=== PATIENT | female | born 1990 | race Hispanic/Latino ===

== ENCOUNTER 2019-03-28 10:33 | Emergency (ER) | payer BC ==
[2019-03-28 11:19] LABS: Urine Blood TRACE (NEG); Urine Glucose NEGATIVE (NEG); Urine Protein NEGATIVE (NEG); Urine Specific Gravity 1.015 (1.005-1.030); Urine pH 7.5 (5.0-7.0)
--- NOTE | 2019-03-28 11:47 | EDPHYS ---
Physician Documentation [facility] Name: Estela Fallon Age: 28 yrs Sex: Female : 1990 Arrival Date: 03/28/2019 Time: 10:36 Bed 20 Private MD: ED Physician Reji Omer HPI: 03/28 11:18 This 28 yrs old Female presents to ER via Ambulatory with complaints of Vision pm1 Problem. 11:18 The patient is experiencing blurred vision, tunnel vision. Onset: The symptoms/episode pm1 began/occurred this morning. Duration: the symptoms last 30 minute(s). Aggravated by nothing. Alleviated by nothing. Associated signs and symptoms: Pertinent negatives: None. dizziness, ear ache, fever, headache, runny nose. Patient does not utilize any form of vision correction. Severity of symptoms: in the emergency department the symptoms have resolved Pain is currently a 0 / 10. The patient has experienced similar episodes in the past, a few times, and the symptoms today are exactly the same, Last occurred with prior . Patient is . Patient reports preeclampsia with prior . The patient has not recently seen a physician, Chris is patient's OB. Patient is currently 31 weeks. patient was watching TV this AM and reports bilateral blurry vision that felt like tunnel vision. Her symptoms lasted for 30 minutes. Patient reports complete resolution. She has had multiple episodes of the same symptoms with her prior . She had a history of preeclampsia with her previous . No vision loss, headache, weakness, abdominal pain, nausea/vomiting/diarrhea, vaginal discharge or bleeding. . 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 - Social history:: Smoking status: Patient/guardian denies using tobacco. - Ebola Screening: : Patient negative for fever greater than or equal to 101.5 degrees Fahrenheit, and additional compatible Ebola Virus Disease symptoms Patient denies exposure to infectious person Patient denies travel to an Ebola-affected area in the 21 days before illness onset No symptoms or risks identified at this time. ROS: 11:18 Constitutional: Negative for fever, chills, and weight loss, ENT: Negative for injury, pm1 pain, and discharge, Neck: Negative for injury, pain, and swelling, Cardiovascular: Negative for chest pain, palpitations, and edema, Respiratory: Negative for shortness of breath, cough, wheezing, and pleuritic chest pain, Abdomen/GI: Negative for abdominal pain, nausea, vomiting, diarrhea, and constipation, Back: Negative for injury and pain, : Negative for injury, bleeding, discharge, and swelling, MS/Extremity: Negative for injury and deformity, Skin: Negative for injury, rash, and discoloration, Neuro: Negative for headache, weakness, numbness, tingling, and seizure. 11:18 Eyes: Positive for blurry vision, Negative for discharge, matting, pain, swelling, tearing, vision loss. Exam: 11:18 Constitutional: This is a well developed, well nourished patient who is awake, alert, pm1 and in no acute distress. Head/Face: Normocephalic, atraumatic. 11:18 ENT: Nares patent. No nasal discharge, no septal abnormalities noted. Tympanic membranes are normal and external auditory canals are clear. Oropharynx with no redness, swelling, or masses, exudates, or evidence of obstruction, uvula midline. Mucous membranes moist. 11:18 Neck: Trachea midline, no thyromegaly or masses palpated, and no cervical lymphadenopathy. Supple, full range of motion without nuchal rigidity, or vertebral point tenderness. No Meningismus. Chest/axilla: Normal chest wall appearance and motion. Nontender with no deformity. No lesions are appreciated. Cardiovascular: Regular rate and rhythm with a normal S1 and S2. No gallops, murmurs, or rubs. Normal PMI, no JVD. No pulse deficits. Respiratory: Lungs have equal breath sounds bilaterally, clear to auscultation and percussion. No rales, rhonchi or wheezes noted. No increased work of breathing, no retractions or nasal flaring. Back: No spinal tenderness. No costovertebral tenderness. Full range of motion. Skin: Warm, dry with normal turgor. Normal color with no rashes, no lesions, and no evidence of cellulitis. MS/ Extremity: Pulses equal, no cyanosis. Neurovascular intact. Full, normal range of motion. 11:18 Eyes: Periorbital structures: appear normal, no acute changes, Pupils: no acute changes, Extraocular movements: no acute changes, Conjunctiva: normal, no exudate, no injection, no subconjunctival hemorrhage no abnormal tearing, Corneas: are normal, no acute changes, no foreign body, Sclera: no appreciated abnormality, no acute changes, Anterior chamber: normal, no hyphema, Lids and lashes: appear normal, bilaterally, funduscopic exam reveals no obvious abnormalities, discs that are sharp, no appreciated papilledema, no enlargement of the optic cup, no appreciated A-V knicking, no evidence of cotton wool exudatates, no flame hemorrhages, Visual dickens: are intact, no acute changes. 11:18 Abdomen/GI: Inspection: gravid appearance, is noted, Palpation: abdomen is soft and non-tender. 11:18 Neuro: Orientation: is normal, Mentation: is normal, Cranial nerves: CN II- XII are normal as tested, Cerebellar function: normal finger to nose testing, Motor: moves all fours, Sensation: is normal, no obvious gross deficits, Gait: is steady, at a normal pace, without difficulty. Vital Signs: 10:38 BP 113 / 72; Pulse 93; Resp 18; Temp 97.7; Pulse Ox 98% on R/A; Weight 73.48 kg; Height hj 5 ft. 4 in. (162.56 cm); Pain 0/10; 10:38 Body Mass Index 27.81 (73.48 kg, 162.56 cm) hj MDM: 10:44 Patient medically screened. pm1 11:44 Data reviewed: vital signs. Data interpreted: Pulse oximetry: on room air is 98 %. pm1 Interpretation: normal. Counseling: I had a detailed discussion with the patient and/or guardian regarding: the historical points, exam findings, and any diagnostic results supporting the discharge/admit diagnosis, lab results, the need for outpatient follow up, an opthalmologist, an OB/Gyne specialist, to return to the emergency department if symptoms worsen or persist or if there are any questions or concerns that arise at home. 03/28 11:16 Order name: Urine Dipstick--Ancillary (enter results); Complete Time: 11:33 bd 03/28 11:16 Order name: Urine --Ancillary (enter results); Complete Time: 11:33 bd 03/28 10:56 Order name: Urine Dipstick-Ancillary (obtain specimen); Complete Time: 11:15 pm1 03/28 11:20 Order name: EKG; Complete Time: 11:22 pm1 03/28 11:20 Order name: EKG - Nurse/Tech; Complete Time: 11:52 pm1 03/28 11:20 Order name: FHT's; Complete Time: 11:28 pm1 Administered Medications: No medications were administered Disposition: 15:53 Co-signature as Attending Physician, Reji Omer MD. rn Disposition: 03/28/19 11:46 Discharged to Home. Impression: Other visual disturbances. - Condition is Stable. - Discharge Instructions: Blurred Vision, Adult, Visual Disturbances. - Medication Reconciliation Form, Thank You Letter, Antibiotic Education, Prescription Opioid Use form. - Follow up: Emergency Department; When: As needed; Reason: Worsening of condition. Follow up: Simon Perez MD; When: 2 - 3 days; Reason: Recheck today's complaints, Continuance of care, Re-evaluation by your physician. - Problem is new. - Symptoms are resolved. Signatures: Dispatcher [employer] EDMS Faustina Pineda RN RN aj Nieto, Roman, MD MD rn Joaquin, Henry, RN RN hj Marinas, Patrick, NP CHILDREN'S MINISTER pm1 Corrections: (The following items were deleted from the chart) 11:47 11:44 Counseling: I had a detailed discussion with the patient and/or guardian pm1 regarding: the historical points, exam findings, and any diagnostic results supporting the discharge/admit diagnosis, lab results, the need for outpatient follow up, an OB/Gyne specialist, to return to the emergency department if symptoms worsen or persist or if there are any questions or concerns that arise at home, pm1 11:47 11:46 03/28/2019 11:46 Discharged to Home. Impression: Other visual disturbances. pm1 Condition is Stable. Forms are Medication Reconciliation Form, Thank You Letter, Antibiotic Education, Prescription Opioid Use. Follow up: Emergency Department; When: As needed; Reason: Worsening of condition. Follow up: Private Physician; When: 2 - 3 days; Reason: Recheck today's complaints, Continuance of care, Re-evaluation by your physician. Problem is new. Symptoms are resolved. pm1 12:18 11:47 03/28/2019 11:46 Discharged to Home. Impression: Other visual disturbances. aj Condition is Stable. Discharge Instructions: Blurred Vision, Adult. Forms are Medication Reconciliation Form, Thank You Letter, Antibiotic Education, Prescription Opioid Use. Follow up: Emergency Department; When: As needed; Reason: Worsening of condition. Follow up: Simon Perez; When: 2 - 3 days; Reason: Recheck today's complaints, Continuance of care, Re-evaluation by your physician. Problem is new. Symptoms are resolved. pm1
--- NOTE | 2019-03-28 11:47 | ER ---
Nurse's Notes [facility] Name: Estela Fallon Age: 28 yrs Sex: Female : 1990 Arrival Date: 03/28/2019 Time: 10:36 Bed 20 Private MD: Diagnosis: Other visual disturbances Presentation: 03/28 10:36 Presenting complaint: Patient states: LMP-08/26/18; "i started having tunnel vision this hj morning while i was watching TV; denies headache, denies loss of vision; denies N/V; denies abd pain or vaginal bleeding;. Transition of care: patient was not received from another setting of care. Onset of symptoms was March 28, 2019. Risk Assessment: Do you want to hurt yourself or someone else?. Initial Sepsis Screen: Does the patient meet any 2 criteria? No. Patient's initial sepsis screen is negative. Does the patient have a suspected source of infection? No. Patient's initial sepsis screen is negative. Care prior to arrival: None. 10:36 Method Of Arrival: Ambulatory 10:36 Acuity: KYLE 4 DIRECTOR REGULATORY AGENCY: 10:38 [facility] 08/26/2018 Historical: - Allergies: 10:38 No Known Allergies; hj - PMHx: 10:38 None; hj - PSHx: 10:38 ; hj - Immunization history:: Adult Immunizations up to date. - Social history:: Smoking status: Patient/guardian denies using tobacco. - Ebola Screening: : Patient negative for fever greater than or equal to 101.5 degrees Fahrenheit, and additional compatible Ebola Virus Disease symptoms Patient denies exposure to infectious person Patient denies travel to an Ebola-affected area in the 21 days before illness onset No symptoms or risks identified at this time. Screenin:30 Abuse screen: Denies threats or abuse. Denies injuries from another. Nutritional aj screening: No deficits noted. Tuberculosis screening: No symptoms or risk factors identified. Fall Risk None identified. Assessment: 11:30 General: Appears in no apparent distress. comfortable, Behavior is calm, cooperative, aj appropriate for age. Pain: Denies pain. Neuro: Level of Consciousness is awake, alert, obeys commands, Oriented to person, place, time, situation, Appropriate for age Reports "tunnel vision". Respiratory: Airway is patent Respiratory effort is even, unlabored, Respiratory pattern is regular, symmetrical. Derm: Skin is intact, is healthy with good turgor, Skin is pink, warm \\T\\ dry. normal. Vital Signs: 10:38 BP 113 / 72; Pulse 93; Resp 18; Temp 97.7; Pulse Ox 98% on R/A; Weight 73.48 kg; Height hj 5 ft. 4 in. (162.56 cm); Pain 0/10; 10:38 Body Mass Index 27.81 (73.48 kg, 162.56 cm) hj Vitals: 11:30 Heart Tones 147. aj ED Course: 10:36 Patient arrived in ED. hj 10:38 Triage completed. hj 10:39 Arm band placed on left wrist. hj 10:42 Teddy Ruiz NP is PHCP. pm1 10:42 Reji Omer MD is Attending Physician. pm1 10:42 Faustina Pineda, RN is Primary Nurse. aj 11:17 Urine --Ancillary (enter results) Sent. aj 11:17 Urine Dipstick--Ancillary (enter results) Sent. aj 11:30 Patient has correct armband on for positive identification. aj 11:47 Simon Perez MD is Referral Physician. pm1 12:16 No provider procedures requiring assistance completed. Patient did not have IV access aj during this emergency room visit. Administered Medications: No medications were administered Outcome: 11:46 Discharge ordered by MD. pm1 12:16 Discharged to home ambulatory. aj 12:16 Condition: good 12:16 Discharge instructions given to patient, Instructed on discharge instructions, follow up and referral plans. Demonstrated understanding of instructions, follow-up care. 12:18 Patient left the ED. aj Signatures: Faustina Pineda, RN RN Arturo Rosado RN RN Teddy De NP DEPARTMENT ADMINISTRATOR pm1 Corrections: (The following items were deleted from the chart) 10:41 10:38 73.48 kg; Height 5 ft. 4 in.; BMI: 27.8; Pain 0/10; hj hj 10:42 10:38 Pulse 93bpm; Resp 18bpm; Pulse Ox 98% RA; Temp 97.7F; 73.48 kg; Height 5 ft. 4 hj in.; BMI: 27.8; Pain 0/10; hj 10:43 10:36 Acuity: KYLE 4 hj hj 11:00 10:36 Acuity: KYLE 3 hj hj
[2019-03-28 15:09] VITALS: BP 113/72; TEMP 97.7; O2SAT 98
--- NOTE | 2019-03-28 15:56 | EKG ---
Test Date: 2019-03-28 Test Time: 11:43:04 Junior Php Developer: LIVAN MEASUREMENT RESULTS: Intervals: Rate: 80 FL: 132 QRSD: 78 QT: 372 QTc: 429 [place]: P: 43 FL: 132 QRS: 92 T: 44 INTERPRETIVE STATEMENTS: Normal sinus rhythm Rightward axis Borderline ECG No previous ECG available for comparison Electronically Signed On 03-28-19 15:55:33 CDT by Angelo Chambers
== END 2019-03-28 12:18 | disposition home or self-care (01) ==
LOC: ER 10:33
DX: O26.893 Other specified pregnancy related conditions, third trimester (principal); H53.8 Other visual disturbances; Z3A.17 17 weeks gestation of pregnancy
CPT/HCPCS: 81003; 81025; 93005; 99283

== ENCOUNTER 2019-05-18 04:51 | Inpatient (IN) | payer BC ==
[2019-05-17 16:54] LABS: Urine Appearance CLEAR; Urine Bilirubin NEGATIVE (NEG); Urine Blood NEGATIVE (NEG); Urine Color YELLOW; Urine Glucose NEGATIVE (NEG); Urine Protein NEGATIVE (NEG); Urine Specific Gravity <=1.005 (1.005-1.030); Urine Urobilinogen 0.2 mg/dL (0.2-1.0)
[2019-05-17 16:59] LABS: Absolute Lymphocytes (CBC) 2.8 K/uL (0.7-4.9); Basophils % 0.5 % (0-1.3); Hematocrit 32.5 % (36.0-45.0); Lymphocytes % 19.6 % (15.3-44.8); MPV 9.6 fL (7.6-11.3); Protime INR 0.89; RBC Red Blood Cell Count 3.81 M/uL (3.86-4.86)
[2019-05-17 17:05] LABS: Urine Bacteria NONE SEEN /HPF (<20); Urine Culture Reflex Order NOT NEEDED; Urine RBC NONE SEEN /HPF (NONE SEEN)
[2019-05-17 18:01] LABS: Blood Morphology Comment NOT SEEN (NOT SEEN); Platelet Estimate ADEQ
[2019-05-18 00:28] LABS: RPR (Rapid Plasma Reagin) NON-REACT (NON-REACT)
[~2019-05-18 04:51] MED LIST: CEFAZOLIN/SWI 2gm 2 GM/20 ML SYR IVP SCH; NA CIT/CITRIC AC 30 ML ORAL UDC PO ONE; Ringers Lactate 1,000 ML IV PRN
[2019-05-18] MEDS ORDERED: METOCLOPRAMIDE 10 MG/2mL INJ IV SCH (05:00)
[2019-05-18] MEDS ORDERED: Ringers Lactate 1,000 ML IV SCH (05:00)
[2019-05-18] MEDS ORDERED: CEFAZOLIN/SWI 2gm 2 GM/20 ML SYR ONE (05:39)
[2019-05-18 06:00] VITALS: O2SAT 98
[2019-05-18] MEDS ORDERED: FAMOTIDINE 20 MG/2 ML VIAL IV ONE (06:00)
[2019-05-18] MEDS ORDERED: CEFAZOLIN 2 GM in NA CHLORIDE 0.9% 100 ML IVPB ONE (07:00)
[2019-05-18] MEDS ORDERED: MORPHINE SULFATE/PF 1 MG/ML (10 ML AMP) ONE (07:02)
[2019-05-18] MEDS ORDERED: OXYTOCIN 10 UNIT/ML ML IV ONE (07:03)
[2019-05-18] MEDS ORDERED: EPHEDRINE SULF 50 MG/ML VIAL ONE (07:03)
[2019-05-18] MEDS ORDERED: FENTANYL CITR 250 MCG/5 ML ONE (07:03)
[2019-05-18] MEDS ORDERED: NS 0.9% VIAL 10 ML ONE (07:04)
[2019-05-18] MEDS ORDERED: FENTANYL CITR 100 MCG/2 ML ONE (07:17)
[2019-05-18 07:24] VITALS: BMI 29.8
[2019-05-18] MEDS ORDERED: ONDANSETRON 4 MG/2 ML VIAL ONE (07:56)
[2019-05-18] MEDS ORDERED: METHYLERGONOVINE 0.2MG/ML AMP IM ONE ×2 (08:13→16:15)
[2019-05-18] MEDS ORDERED: KETOROLAC 30 MG/ML INJ IM PRN (08:19)
[2019-05-18] MEDS ORDERED: ONDANSETRON 4 MG (ODT) TAB PO PRN (08:19)
[2019-05-18] MEDS ORDERED: BISACODYL 10 MG RECTAL SUPP RECT PRN (08:19)
[2019-05-18] MEDS ORDERED: KETOROLAC 30 MG/ML INJ IV PRN (08:19)
[2019-05-18] MEDS ORDERED: ONDANSETRON 4 MG/2 ML VIAL IV PRN (08:19)
[2019-05-18] MEDS ORDERED: DIPHENHYDRAMINE 25 MG TAB/CAP PO PRN (08:19)
[2019-05-18] MEDS ORDERED: ACETAMINOPHEN 500 MG TAB PO PRN ×2 (08:19)
[2019-05-18] MEDS ORDERED: Oxycodone HCl/Acetaminophen 1 TAB TAB PO PRN ×2 (08:19)
[2019-05-18] MEDS ORDERED: CEFAZOLIN/SWI 1gm 1 GM/10 ML SYR IV SCH (09:00)
[2019-05-18] MEDS: OXYTOCIN/LR 20 UNIT/1,000 ML BAG IV SCH ×2 (11:43→20:35)
[2019-05-18] MEDS ORDERED: CEFAZOLIN/SWI 2gm 2 GM/20 ML SYR IV SCH (16:00)
[2019-05-19] MEDS: IBUPROFEN 200 MG TAB PO PRN ×3 (03:15→16:59)
[2019-05-19] MEDS ORDERED: D5LR 0 ML IV ONE (03:38)
[2019-05-19] MEDS ORDERED: D5LR 1,000 ML IV ONE (03:40)
[2019-05-19] MEDS: OXYTOCIN/LR 20 UNIT/1,000 ML BAG IV SCH (04:00)
[2019-05-19] MEDS ORDERED: MAGNESIUM HYDROXIDE 8% 30 ML PO PRN (08:19)
--- NOTE | 2019-05-19 08:41 | P.PN ---
Date of Service: 05/19/19 Pt in shower, voices no complaints. Iv out, pack out, patient on regular diet.
[2019-05-20] MEDS: IBUPROFEN 200 MG TAB PO PRN ×2 (00:21→06:29)
[2019-05-20 07:12] VITALS: BP 115/76; TEMP 98.2
--- NOTE | 2019-05-21 08:16 | OP ---
Surgeon: Simon Perez MD This is a 29-year-old female, 2, para 1, for repeat section at 39 weeks. Infection, blood loss, anesthetic complications, injury to bladder, bowel, ureter, postoperative complications, clots in legs, and pneumonia discussed. The patient knows fully well, does not constitute all possi ble problems that could occur during or following surgery. Rh positive, immune to Rubella. Negative beta strep screen. Anesthestologist: Dr. Overton' group. Anesthesia: Spinal block. Description Of Procedure: After adequate prepping and draping, time-out was performed. At this poin t, a Pfannenstiel incision was created over the previous incision site. The incision was carried to the fascia. Fascia was incised and incision carried transversely bilaterally. Anterior and posterio r fascial plane was developed with both blunt and sharp dissection. The underlying rectus muscle was and peritoneum entered bluntly. Retraction applied. Low transverse uterine incision crea latrice. A 7 pounds, 9 ounce male was delivered without difficulties. Apgars 9 and 9. Cord blood speci men was obtained. Placenta was removed manually. Uterus cleared of clot and blood and exteriorized. Cervical os dilated with ring clamp. Uterus repaired with 1 chromic running locked stitch, followe d by 2 [id number] stitches in the right angle for complete hemostasis. Initially, the uterus wa s normal and then mild after the uterus was closed. This point, 0.2 mg of Methergine give n IM and resulted in good uterine tone. Estimated blood loss 850 cc during the procedure. Gutters c lear of clot and blood. Uterus was replaced in the peritoneal cavity. Inspection of the suture line showed no further bleeding. Rectus muscles were reapproximated with 0 Vicryl, 3 interrupted sutures . Fascia was closed with 0 Vicryl running from either angle to the midline. Subcutaneous tissue anup sed with 2-0 plain. Absorbable ginger placed and then metal ginger. The patient had 2 g of Ancef for prophylaxis. Tolerated all procedures well. Transferred back to her room in good condition. Final Diagnoses: Intrauterine gestation, 39 weeks. Repeat section. Spinal block anesthesi a. Mild uterine hypotonus. NBC/MODL Voice ID: [id number] Report ID: [id number]
[2019-05-22 03:15] LABS: HBsAG Nonreactive (Nonreactive)
== END 2019-05-20 09:25 | disposition home or self-care (01) | DRG 788 ==
LOC: 2ND-WC 04:51
PROVIDERS: ADMIT Specialist; ATTEND Specialist
PROC: 10D00Z1 Extraction of Products of Conception, Low, Open Approach (ICD-10-PCS; principal; 2019-05-18 07:30)
DX: O34.211 Maternal care for low transverse scar from previous cesarean delivery (principal); O62.2 Other uterine inertia; Z3A.39 39 weeks gestation of pregnancy; Z37.0 Single live birth
CPT/HCPCS: 36415; 81001; 85014; 85025; 85610; 85730; 86592; 86850; 86900; 86901; 87340; 88307; J0690; J2210; J2405; J2590; J2765; J3010